=== PATIENT | female | born 1960 | race Caucasian/White ===

== ENCOUNTER 2020-12-09 13:37 | Day surgery (SDC) | payer BC ==
[~2020-12-09] VITALS: Ht 160 cm; Wt 81.6 kg
[~2020-12-09 13:37] MED LIST: AMLO5; ATOR10 PO; CYCL10 PO; DULO60 PO; HYDR-86; LOSA25 PO; METF500 PO; METO25ER PO; PRAM.5 PO; SERT100 PO; VARE1 PO; VENL25 PO
[2020-12-09] MEDS ORDERED: HYDR1TAB94 (14:11)
[2020-12-09] MEDS ORDERED: PREG150 (14:11)
== END 2020-12-09 16:22 | disposition home or self-care (01) ==
LOC: ORSCSDS 13:37
PROVIDERS: Internal Medicine Gastroenterology
PROC: 0DBL8ZX Excision of Transverse Colon, Via Natural or Artificial Opening Endoscopic, Diagnostic (ICD-10-PCS; principal; 2020-12-09 14:45)
PROC: 0DBP8ZX Excision of Rectum, Via Natural or Artificial Opening Endoscopic, Diagnostic (ICD-10-PCS; principal; 2020-12-09 14:45)
DX: Z12.11 Encounter for screening for malignant neoplasm of colon (principal); Z86.010 Personal history of colon polyps; D12.3 Benign neoplasm of transverse colon; K64.8 Other hemorrhoids; I10 Essential (primary) hypertension; Z87.891 Personal history of nicotine dependence; Z79.899 Other long term (current) drug therapy
CPT/HCPCS: 82947; 88305; J2704; J7120

== ENCOUNTER 2021-04-22 06:38 | Day surgery (SDC) | payer BC ==
[~2021-04-22] VITALS: Ht 160 cm; Wt 69.6 kg
[~2021-04-22 06:38] MED LIST changes: +HYDR1TAB94; +PREG150
== END 2021-04-22 09:00 | disposition home or self-care (01) ==
LOC: ORSCSDS 06:38
PROVIDERS: Internal Medicine Gastroenterology
PROC: 0DBP8ZX Excision of Rectum, Via Natural or Artificial Opening Endoscopic, Diagnostic (ICD-10-PCS; principal; 2021-04-22 08:00)
PROC: 0DBL8ZX Excision of Transverse Colon, Via Natural or Artificial Opening Endoscopic, Diagnostic (ICD-10-PCS; principal; 2021-04-22 08:00)
PROC: 0DBM8ZX Excision of Descending Colon, Via Natural or Artificial Opening Endoscopic, Diagnostic (ICD-10-PCS; principal; 2021-04-22 08:00)
PROC: 0DBH8ZX Excision of Cecum, Via Natural or Artificial Opening Endoscopic, Diagnostic (ICD-10-PCS; principal; 2021-04-22 08:00)
PROC: 0DBK8ZX Excision of Ascending Colon, Via Natural or Artificial Opening Endoscopic, Diagnostic (ICD-10-PCS; principal; 2021-04-22 08:00)
PROC: 0DBN8ZX Excision of Sigmoid Colon, Via Natural or Artificial Opening Endoscopic, Diagnostic (ICD-10-PCS; principal; 2021-04-22 08:00)
DX: K51.20 Ulcerative (chronic) proctitis without complications (principal); I10 Essential (primary) hypertension; Z79.899 Other long term (current) drug therapy; Z87.891 Personal history of nicotine dependence; K57.30 Diverticulosis of large intestine without perforation or abscess without bleeding; K64.8 Other hemorrhoids
CPT/HCPCS: 82947; 88305; J0330; J0461; J2405; J2704; J7120

== ENCOUNTER 2021-05-15 09:45 | Day surgery (SDC) | payer BC ==
[~2021-05-15] VITALS: Ht 160 cm; Wt 69.1 kg
== END 2021-05-15 11:22 | disposition home or self-care (01) ==
LOC: ORSCSDS 09:45
PROVIDERS: Internal Medicine Gastroenterology
PROC: 0DB68ZX Excision of Stomach, Via Natural or Artificial Opening Endoscopic, Diagnostic (ICD-10-PCS; principal; 2021-05-15 11:15)
PROC: 0DB98ZX Excision of Duodenum, Via Natural or Artificial Opening Endoscopic, Diagnostic (ICD-10-PCS; principal; 2021-05-15 11:15)
DX: R10.13 Epigastric pain (principal); R19.7 Diarrhea, unspecified; K64.8 Other hemorrhoids; I10 Essential (primary) hypertension; F32.9 Major depressive disorder, single episode, unspecified; Z79.899 Other long term (current) drug therapy
CPT/HCPCS: 82947; 88305; 88342; J2704; J7120

== ENCOUNTER → 2021-08-17 | Outpatient (CLI) | payer BC ==
[2021-08-18 10:05] LABS: C DIFFICILE DNA NEGATIVE (Negative)
== END | disposition home or self-care (01) ==
LOC: LAB SHORT 14:54 → LAB 14:54 → LAB FUT 08-14 10:05 → EDSTATUS 08-14 10:05
PROVIDERS: Internal Medicine Gastroenterology
DX: K51.50 Left sided colitis without complications (principal)
CPT/HCPCS: 83993; 87493

== ENCOUNTER 2021-09-28 05:37 | Day surgery (SDC) | payer BC ==
[~2021-09-28] VITALS: Wt 68.2 kg
== END 2021-09-28 16:27 | disposition home or self-care (01) ==
LOC: ATC 05:37
DX: K51.50 Left sided colitis without complications (principal); I10 Essential (primary) hypertension; D12.2 Benign neoplasm of ascending colon; K64.8 Other hemorrhoids; Z86.16 Personal history of COVID-19; Z87.891 Personal history of nicotine dependence; Z79.899 Other long term (current) drug therapy
CPT/HCPCS: 96375; 96413; 96415; A9270; J1720; J7050; Q5103

== ENCOUNTER 2021-10-15 10:27 | Emergency (ER) | payer BC ==
[~2021-10-15] VITALS: Ht 157.5 cm; Wt 69.0 kg
[~2021-10-15 10:27] MED LIST changes: +INFLECTRA100 MG IV
[2021-10-15 12:40] LABS: BASOPHILS ABSOLUTE AUTO 0.02 K/mm3 (0.00-0.23); BASOPHILS PERCENT AUTO 0 % (0-2); EOSINOPHILS ABSOLUTE AUTO 0.03 K/mm3 (0.00-0.68); EOSINOPHILS PERCENT AUTO 1 % (0-6); Hematocrit 43.8 % (33.0-51.0); Hemoglobin 14.4 g/dL (11.5-16.0); IMMATURE GRAN ABSOLUTE AUTO 0.01 K/mm3 (0.00-0.10); IMMATURE GRAN PERCENT AUTO 0 % (0-1); LYMPHOCYTES ABSOLUTE AUTO 1.16 K/mm3 (0.84-5.20); LYMPHOCYTES PERCENT AUTO 20 % (21-46); MONOCYTES ABSOLUTE AUTO 0.15 K/mm3 (0.16-1.47); MONOCYTES PERCENT AUTO 3 % (4-13); Mean Corpuscular HGB 29.2 pg (26.0-34.0); Mean Corpuscular HGB Conc 32.9 g/dL (31.5-36.5); Mean Corpuscular Volume 89 fL (80-100); Mean Platelet Volume 10.4 fL (9.1-12.4); NEUTROPHILS ABSOLUTE AUTO 4.46 K/mm3 (1.96-9.15); NEUTROPHILS PERCENT AUTO 77 % (41-73); Platelet Count 298 K/mm3 (150-400); RDW Standard Deviation 45.2 fL (35.1-46.3); Red Blood Cell Count 4.93 M/mm3 (3.80-5.20); White Blood Cell Count 5.83 K/mm3 (4.00-11.30)
[2021-10-15 13:00] LABS: Anion Gap 7 mmol/L (6-16); Blood Urea Nitrogen 19 mg/dL (8-24); Bun/Creatinine Ratio 29.5 (12.0-20.0); C-Reactive Protein, High Sens. 0.452 mg/L (0.000-3.000); CO2, Blood 25 mmol/L (21-32); Calcium, Blood 9.6 mg/dL (8.5-10.1); Chloride, Blood 107 mmol/L (98-108); Creatinine, Blood 0.65 mg/dL (0.40-1.00); Glomerular Filtration Rate >60 (60-); Glucose, Blood 140 mg/dL (70-99); Magnesium, Blood 2.1 mg/dL (1.6-2.4); Potassium, Blood 4.1 mmol/L (3.5-5.5); Sodium, Blood 139 mmol/L (136-145)
== END 2021-10-15 13:40 | disposition home or self-care (01) ==
LOC: ER 10:27
PROVIDERS: Student in an Organized Health Care Education/Training Program
DX: R19.7 Diarrhea, unspecified (principal); R10.9 Unspecified abdominal pain; K51.90 Ulcerative colitis, unspecified, without complications; Z79.899 Other long term (current) drug therapy
CPT/HCPCS: 36415; 80048; 83735; 85025; 85651; 86141; 96374; 99282-25; J2930

== ENCOUNTER 2021-11-09 02:28 | Day surgery (SDC) | payer BC | END 2021-11-09 11:50 | disposition home or self-care (01) | LOC: ATC 02:28 | DX: K51.50 Left sided colitis without complications (principal); Z79.899 Other long term (current) drug therapy; I10 Essential (primary) hypertension | CPT/HCPCS: 96413; 96415; J7050; Q5103 ==

== ENCOUNTER 2022-03-01 01:51 | Day surgery (SDC) | payer BC ==
--- NOTE | 2022-03-01 08:37 | NUR ---
PT REFUSED PRE-MEDICATIONS. TOOK BENADRYL AND TYLENOL AT HOME. REFUSED STEROID.
--- NOTE | 2022-03-01 09:11 | NUR ---
Pt declined her pre medications today.
== END 2022-03-01 11:15 | disposition home or self-care (01) ==
LOC: ATC 01:51
DX: K51.50 Left sided colitis without complications (principal); I10 Essential (primary) hypertension; Z87.891 Personal history of nicotine dependence
CPT/HCPCS: J7050; Q5103

== ENCOUNTER 2022-04-21 10:50 | Day surgery (SDC) | payer BC ==
[~2022-04-21] VITALS: Ht 160 cm; Wt 71.2 kg
[~2022-04-21 10:50] MED LIST changes: -AMLO5; +AMLO5 PO; +EFFEXOR XR150 MG PO; +HUMIRA PEN40 MG/0.2 SC; +LOSA50 PO; +MIRAPEX0.25 M2 PO; +Norco 10-325 T1 EACH PO; +ORTIKOS9 M1 PO; +PRAHYD1AE; +PREG100 PO; +TOPROL XL200 MG PO
== END 2022-04-21 12:54 | disposition home or self-care (01) ==
LOC: ORSCSDS 10:50
PROVIDERS: Internal Medicine Gastroenterology
PROC: 0DBE8ZX Excision of Large Intestine, Via Natural or Artificial Opening Endoscopic, Diagnostic (ICD-10-PCS; principal; 2022-04-21 12:00)
PROC: 0DBP8ZX Excision of Rectum, Via Natural or Artificial Opening Endoscopic, Diagnostic (ICD-10-PCS; principal; 2022-04-21 12:00)
DX: K51.90 Ulcerative colitis, unspecified, without complications (principal); Z86.010 Personal history of colon polyps; K64.8 Other hemorrhoids; I10 Essential (primary) hypertension; Z87.891 Personal history of nicotine dependence; Z79.899 Other long term (current) drug therapy; Z86.16 Personal history of COVID-19
CPT/HCPCS: 82947; 88305; J2704; J7120

== ENCOUNTER 2022-04-26 07:44 | Day surgery (SDC) | payer BC ==
[~2022-04-26] VITALS: Wt 72.5 kg
== END 2022-04-26 10:35 | disposition home or self-care (01) ==
LOC: ATC 07:44
DX: K51.50 Left sided colitis without complications (principal); K64.8 Other hemorrhoids; Z86.16 Personal history of COVID-19; Z80.0 Family history of malignant neoplasm of digestive organs
CPT/HCPCS: 96375; 96413; 96415; A9270; J1720; J7050; Q5103

== ENCOUNTER → 2022-06-12 | Outpatient (CLI) | payer BC ==
[2022-06-12 11:49] LABS: BASOPHILS ABSOLUTE AUTO 0.04 K/mm3 (0.00-0.23); BASOPHILS PERCENT AUTO 1 % (0-2); EOSINOPHILS ABSOLUTE AUTO 0.12 K/mm3 (0.00-0.68); EOSINOPHILS PERCENT AUTO 2 % (0-6); Hemoglobin 12.4 g/dL (11.5-16.0); IMMATURE GRAN ABSOLUTE AUTO 0.01 K/mm3 (0.00-0.10); IMMATURE GRAN PERCENT AUTO 0 % (0-1); LYMPHOCYTES ABSOLUTE AUTO 1.77 K/mm3 (0.84-5.20); LYMPHOCYTES PERCENT AUTO 32 % (21-46); MONOCYTES PERCENT AUTO 9 % (4-13); Mean Corpuscular HGB 28.8 pg (26.0-34.0); Mean Corpuscular HGB Conc 33.5 g/dL (31.5-36.5); Mean Corpuscular Volume 86 fL (80-100); NEUTROPHILS ABSOLUTE AUTO 3.06 K/mm3 (1.96-9.15); NEUTROPHILS PERCENT AUTO 56 % (41-73); Platelet Count 276 K/mm3 (150-400); RDW Coefficient Variation 13.2 % (11.7-14.2); RDW Standard Deviation 40.7 fL (35.1-46.3)
[2022-06-12 12:13] LABS: C-REACTIVE PROTEIN, EXT RANGE 0.957 mg/dL (0.000-0.300)
[2022-06-12 12:14] LABS: Albumin, Blood 3.7 g/dL (3.4-5.0); Albumin/Globulin Ratio 0.9 (0.8-1.8); Bilirubin, Total 0.4 mg/dL (0.1-1.0); Bun/Creatinine Ratio 30.2 (12.0-20.0); Calcium, Blood 9.2 mg/dL (8.5-10.1); Creatinine, Blood 0.53 mg/dL (0.40-1.00); Globulin, Blood 3.9 g/dL (2.2-4.0); Potassium, Blood 4.1 mmol/L (3.5-5.5); Total Protein, Blood 7.6 g/dL (6.4-8.2)
== END ==
LOC: LAB SHORT 10:40 → LAB 10:40
PROVIDERS: General Practice
DX: M35.3 Polymyalgia rheumatica (principal)
CPT/HCPCS: 80053; 85025; 85651; 86140

== ENCOUNTER → 2022-08-09 | Outpatient (CLI) | payer BC | END | disposition home or self-care (01) | LOC: LAB 16:40 → LAB SHORT 16:40 → LAB FUT 08-04 14:15 | DX: K62.5 Hemorrhage of anus and rectum (principal) | CPT/HCPCS: 83993 ==

== ENCOUNTER → 2023-04-21 | Outpatient (CLI) | payer BC ==
[2023-04-21 09:57] LABS: Source, Urine Clean Catch
[2023-04-21 13:29] LABS: Appearance, Urine Clear (Clear); Bilirubin, Urine Neg (Neg); Blood, Urine Neg (Neg); Color, Urine Yellow (P-Yellow); Glucose Qualitative, Urine Neg (Neg); Ketones, Urine Neg (Neg); Leukocyte Esterase, Urine Neg (Neg); Nitrite, Urine Neg (Neg); Protein, Urine Neg (Neg); Specific Gravity, Urine 1.025 (1.003-1.022); Urobilinogen, Urine NORM (Normal)
== END | disposition home or self-care (01) ==
LOC: LAB SHORT 09:20 → LAB 09:20
PROVIDERS: Physician Assistant Medical
DX: E11.9 Type 2 diabetes mellitus without complications (principal); G25.81 Restless legs syndrome; G89.29 Other chronic pain; M79.7 Fibromyalgia
CPT/HCPCS: 81003

== ENCOUNTER 2024-06-12 13:55 | Day surgery (SDC) | payer BC ==
[~2024-06-12] VITALS: Ht 157.5 cm; Wt 57.7 kg
[~2024-06-12 13:55] MED LIST changes: +Atropine Sulfate 0.1 MG/ML 10ML SYR ONE; +Glycopyrrolate 0.2 MG/ML 1MLVIAL ONE; +Lactated Ringer's 1,000 ML IV ONE; +Lidocaine 2% 5 ML SDV ONE; +Lidocaine HCl/Pf 1% 5 ML VIAL ONE; +Methylene Blue 1% 100 MG/10 ML VIAL ONE; +Ondansetron HCl 2 MG / ML 2ML Vial ONE; +ePHEDrine Sulfate 50 MG/ML 1ML Injection ONE; +propofoL 50 ML IV ONE
[2024-06-12] MEDS ORDERED: PRAM.125 (14:10)
[2024-06-12] MEDS ORDERED: Lactated Ringer's 1,000 ML IV ONE (14:49)
[2024-06-12 16:14] VITALS: BP 178/104
== END 2024-06-12 16:05 | disposition home or self-care (01) ==
LOC: ORSCSDS 13:55
PROVIDERS: Specialist
PROC: 0DBP8ZX Excision of Rectum, Via Natural or Artificial Opening Endoscopic, Diagnostic (ICD-10-PCS; principal; 2024-06-12 15:00)
PROC: 0DBN8ZX Excision of Sigmoid Colon, Via Natural or Artificial Opening Endoscopic, Diagnostic (ICD-10-PCS; principal; 2024-06-12 15:00)
PROC: 0DBL8ZX Excision of Transverse Colon, Via Natural or Artificial Opening Endoscopic, Diagnostic (ICD-10-PCS; principal; 2024-06-12 15:00)
PROC: 0DBK8ZX Excision of Ascending Colon, Via Natural or Artificial Opening Endoscopic, Diagnostic (ICD-10-PCS; principal; 2024-06-12 15:00)
PROC: 0DBH8ZX Excision of Cecum, Via Natural or Artificial Opening Endoscopic, Diagnostic (ICD-10-PCS; principal; 2024-06-12 15:00)
PROC: 0DBM8ZX Excision of Descending Colon, Via Natural or Artificial Opening Endoscopic, Diagnostic (ICD-10-PCS; principal; 2024-06-12 15:00)
DX: R63.4 Abnormal weight loss (principal); Z86.010 Personal history of colon polyps; Z87.19 Personal history of other diseases of the digestive system; Z83.719 Family history of colon polyps, unspecified; D12.5 Benign neoplasm of sigmoid colon; K57.30 Diverticulosis of large intestine without perforation or abscess without bleeding; K64.8 Other hemorrhoids
CPT/HCPCS: 82947; 88305; J0461; J2001; J2405; J2704; J7120; Q9968

== ENCOUNTER → 2025-06-14 | Outpatient (CLI) | payer BC ==
[~2025-06-14] MED LIST changes: -Atropine Sulfate 0.1 MG/ML 10ML SYR ONE; -Glycopyrrolate 0.2 MG/ML 1MLVIAL ONE; -Lactated Ringer's 1,000 ML IV ONE; -Lidocaine 2% 5 ML SDV ONE; -Lidocaine HCl/Pf 1% 5 ML VIAL ONE; -Methylene Blue 1% 100 MG/10 ML VIAL ONE; -Ondansetron HCl 2 MG / ML 2ML Vial ONE; +PRAM.125; -ePHEDrine Sulfate 50 MG/ML 1ML Injection ONE; -propofoL 50 ML IV ONE
[2025-06-18 15:14] LABS: CALPROTECTIN,FECAL >3000 ug/g (<=49)
== END ==
LOC: LAB 12:15 → LAB SHORT 12:15
PROVIDERS: Physician Assistant Medical
DX: K51.50 Left sided colitis without complications (principal)
CPT/HCPCS: 83993

== ENCOUNTER → 2025-06-27 | Outpatient (CLI) | payer BC ==
[2025-06-27 15:21] LABS: Campylobacter Sp Not Detected (NOT DETECT); E. Coli O157 Not Detected (NOT DETECT); Enteroaggregative E. coli-EAEC Not Detected (NOT DETECT); Enteropathogenic E. coli-EPEC Not Detected (NOT DETECT); Enterotoxigenic E. coli-ETEC Not Detected (NOT DETECT); Salmonella Sp Not Detected (NOT DETECT); Shiga Toxin-prod E. coli-STEC Not Detected (NOT DETECT); Shigella/Enteroin E. coli-EIEC Not Detected (NOT DETECT); Vibrio Sp Not Detected (NOT DETECT)
== END ==
LOC: LAB SHORT 07:14 → LAB 07:14
PROVIDERS: Physician Assistant Medical
DX: K51.50 Left sided colitis without complications (principal)
CPT/HCPCS: 87507